=== PATIENT | male | born 1985 | race Caucasian/White ===

== ENCOUNTER 2018-12-11 12:45 | Emergency (ER) | payer OTHER ==
[2018-12-11 12:59] VITALS: BP 158/93
[2018-12-11] MEDS ORDERED: Silver Sulfadiazine 1%* 20 GM TOPICAL ONE (13:30)
[2018-12-11] MEDS ORDERED: Tetan/Diph/Pertus SYR(Tdap)* 0.5 ML SYR(BOOSTRIX) use SYR IM ONE (13:41)
--- NOTE | 2018-12-11 13:47 | UC ---
HPI BURN - HPI Summary HPI Summary: 33 y/o male presents to the urgent care c/o left hand burn with hot oil while cooking about 1 week ago. Pt reports he thinks it is infected since he noticed yellowish drainage yesterday. Pt also states swelling and pain today. Pain at touch is 8/10. Pt reports he had some intact blister which dissolved with the days. He has been irrigating his hand with sterile water and topical lidocaine, but had not applied any antibacterial cream. He can move fingers w/o any difficulty. Pt denies fever, numbness or tingling over left hand, SOB, chest pain, abdominal pain, N/V/D. No UTD with tetanus vaccine - History of Current Complaint Chief Complaint: UCBurn Stated Complaint: WOUND ON HAND FROM BURN Time Seen by Provider: 12/11/18 13:13 Hx Obtained From: Patient Occurred: Weeks Ago - 1 week ago Onset Severity: Severe Current Severity: Moderate Pain Intensity: 4 Pain Scale Used: 0-10 Numeric Location: LUE - dorsal side of hand Character: Direct Thermal Contact - hot oil, Scald, Blisters: Ruptured Aggravating Factor(s): Other - touch Alleviating Factor(s): Cool Soaks Associated Signs & Symptoms: Negative: SOB, Cough, Chest Pain, Additional Trauma Occupational Injury: No - Allergy/Home Medications Allergies/Adverse Reactions: Allergies Allergy/AdvReac Type Severity Reaction Status Date / Time No Known Allergies Allergy Verified 12/11/18 12:59 Home Medications: Home Medications Dextroamphetamine/Amphetamine [Adderall 20 mg Tablet] 1 tab PO BID 12/11/18 [ History Confirmed 12/11/18] Sertraline HCl [Zoloft] 150 mg PO DAILY 12/11/18 [History Confirmed 12/11/18] PMH/Surg Hx/FS Hx/Imm Hx Previously Healthy: Yes Cardiovascular History: Hypertension - diet controlled - Surgical History Surgical History: Yes Surgery Procedure, Year, and Place: LEFT ANKLE 05/29/2018 FX REPAIR WITH PLATING - Family History Known Family History: Positive: Hypertension - Social History Occupation: Employed Full-time Lives: With Family Alcohol Use: Daily Alcohol Amount: 2 drinks/day Substance Use Type: None Smoking Status (MU): Former Smoker Length of Time of Smoking/Using Tobacco: quit 7 months ago - Immunization History Hx Tetanus, Diphtheria Vaccination: No - can't recall Review of Systems All Other Systems Reviewed And Are Negative: Yes Constitutional: Positive: Negative Skin: Positive: Other - left hand burn with a hot oil Eyes: Positive: Negative ENT: Positive: Negative Respiratory: Positive: Negative Cardiovascular: Positive: Negative Gastrointestinal: Positive: Negative Genitourinary: Positive: Negative Motor: Positive: Negative Neurovascular: Positive: Negative Musculoskeletal: Positive: Other: - left hand pain s/p burn Neurological: Positive: Negative Psychological: Positive: Negative Is Patient Immunocompromised?: No Physical Exam - Summary Physical Exam Summary: Vital Signs Reviewed: Yes General: well appearing, well nourished in no acute apparent pain distress, sitting comfortably on examining table Eye Exam: Normal Eyes: Positive: Conjunctiva Clear - PERRLA< EOMI, fundi grossly normal ENT: Positive: Normal ENT inspection, Hearing grossly normal, Pharynx normal, TMs normal Neck: Positive: Supple, Nontender, No Lymphadenopathy Respiratory: Positive: Chest non-tender, Lungs clear, Normal breath sounds, No respiratory distress Cardiovascular: Positive: RRR, No Murmur, Pulses Normal, Brisk Capillary Refill Abdomen Description: Positive: Nontender, No Organomegaly, Soft. Negative: CVA Tenderness (R), CVA Tenderness (L) Bowel Sounds: Positive: Present Musculoskeletal: Positive: Strength Intact, ROM Intact, No Edema Neurological: Positive: Alert, Muscle Tone Normal Psychological Exam: Normal Skin:Positive: Dorsal side of Left hand w/ superficial partial thickness erythema and disrupted blisters of different sizes, . About 1% of TBSA, tender to palpation. mild swelling observed. skin blanches w/ pressure,surrounding erythema with indistinct borders and tender to palpation and mild yellowish drainage observed FROM of the LF extremity, sensation intact, brisk capillary refill. Triage Information Reviewed: Yes Vital Signs: Initial Vital Signs Temp 98.1 F 12/11/18 12:53 Pulse 82 12/11/18 12:53 Resp 18 12/11/18 12:53 BP 158/93 12/11/18 12:53 Pulse Ox 97 12/11/18 12:53 Burn Calculation - [place] Formula for Fluid Resuscitation Weight: 154.221 kg 24 -Hour Fluid Replacement: 0.0 Course/Dx Burn - Course Course Of Treatment: 33 y/o male presents to the urgent care c/o left hand burn with hot oil while cooking about 1 week ago. Pt reports he thinks it is infected since he noticed yellowish drainage yesterday. Pt also states swelling and pain today. Pain at touch is 8/10. Pt reports he had some intact blister which dissolved with the days. He has been irrigating his hand with sterile water and topical lidocaine, but had not applied any antibacterial cream. He can move fingers w/o any difficulty. Pt denies fever, numbness or tingling over left hand, SOB, chest pain, abdominal pain, N/V/D. Hx obtained. Pt with a second degree burn over the dorsal side of the left hand w/ dirupted blisters and sorrounding erythema with indistinct borders and tender to palpation and mild yellowish drainage observed on examination. Pt given Tetanus vaccine by Nurse. Pt's wound irrigated w/ sterile water and covered w/ Silver Sulfadiazine and covered w/ sterile gauze by nurse. Pt Rx more Silver Sulfadiazine cream and Keflex PO for cellulitis and Ibuprofen PO and [place] to alleviate pain. advised to keep wound dry and clean and if not improvement to return to the urgent care of f/u w/ PCP for further management.Pt's BP is elevated today advised to decrease salt in diet, monitor BP and f/u with PCP for further management. Pt understood and agreed w/ plan of care. - Differential Dx - Burn Differential Diagnoses: Chemical Burn, Direct Contact Thermal Burn, Electrical Burn - Diagnoses Provider Diagnosis: Second degree burn of left hand, Elevated BP without diagnosis of hypertension Discharge - Sign-Out/Discharge Documenting (check all that apply): Patient Departure - D/c home All imaging exams completed and their final reports reviewed: No Studies - Discharge Plan Condition: Stable Disposition: HOME Prescriptions: Cephalexin CAP* [Keflex CAP*] 500 mg PO QID #28 cap HYDROcodone/ACETAMIN 5-325 MG* [[place] 5-325 TAB*] 1 tab PO Q6H PRN #3 tab MDD 1g /4h-4g/day PRN Reason: Pain Ibuprofen TAB* [Motrin TAB* 800 MG] 800 mg PO Q6H PRN #30 tab PRN Reason: Pain Silver Sulfadiazine 1%* [SILVadine 1%*] 1 applic TOPICAL BID #1 tube Patient Education Materials: Second Degree Burn (ED), Low-Sodium Diet (ED) Referrals: Jose Daniel Rodriguez MD [Primary Care Provider] - 3 Days Additional Instructions: 1-Please take keflex PO full course of treatment to avoid recurrent infection. 2- Please apply Silver Silvadene cream around your burn 3- Take Ibuprofen PO PO q6-8hrs prn after meals for pain and decrease swelling . Take [place] at night time to alleviate pain 4-Please f/u with your PCP in 3 days to make sure wound is improving. Keep wound dry and clean. Avoid too much flexion or strenuous exercise with your left hand 5- Your BP is elevated today. please decrease salt in your diet, monitor BP and if it continues to be elevated please f/u with your PCP for further management. - Billing Disposition and Condition Condition: STABLE Disposition: Home - Attestation Statements Provider Attestation: I was available for consult. This patient was seen by the LUIS ARMANDO. The patient was not presented to, seen by, or examined by me. -Delia
== END 2018-12-11 14:23 | disposition home or self-care (01) ==
LOC: UCEAST 12:45
DX: T23.202A Burn of second degree of left hand, unspecified site, initial encounter (principal); R03.0 Elevated blood-pressure reading, without diagnosis of hypertension; Z87.891 Personal history of nicotine dependence; X10.2XXA Contact with fats and cooking oils, initial encounter; Y93.G3 Activity, cooking and baking; Y92.9 Unspecified place or not applicable; T31.0 Burns involving less than 10% of body surface
CPT/HCPCS: 16000; 90471; 90715; 99212; A9270-GY; G0463